=== PATIENT | female | born 1940 | race Caucasian/White ===

== ENCOUNTER 2016-04-08 10:28 | Emergency (ER) | payer MEDICARE, BC ==
[~2016-04-08] VITALS: Ht 162.6 cm; Wt 74.0 kg
[2016-04-08 10:35] VITALS: BP 130/58; PULSE 72; RESP 18; TEMP 98.4; O2SAT 97
[2016-04-08] MEDS ORDERED: METO-338 PO (10:46)
[2016-04-08] MEDS ORDERED: LEXA10TA PO (10:47)
[2016-04-08] MEDS ORDERED: POTA10CA PO (10:47)
[2016-04-08] MEDS ORDERED: METR-1 PO (10:47)
[2016-04-08] MEDS ORDERED: HYDR12.57 PO (10:47)
[2016-04-08] MEDS ORDERED: ALTA10CA10 PO (10:47)
[2016-04-08] MEDS ORDERED: CIPR-9 PO (10:47)
[2016-04-08] MEDS ORDERED: ZYRT10CA PO (10:47)
[2016-04-08] MEDS ORDERED: LIPI10TA PO (10:47)
[2016-04-08] MEDS ORDERED: MULT1TAB84 PO (10:47)
[2016-04-08] MEDS ORDERED: AMLO5 PO (10:47)
[2016-04-08] MEDS ORDERED: GLUC500T4 PO (10:47)
[2016-04-08] MEDS ORDERED: CALCCHW9 CHEW (10:47)
[2016-04-08] MEDS ORDERED: APIX5TAB PO (10:47)
--- NOTE | 2016-04-08 11:03 | PD ---
HPI Chief Complaint: GI Complaint Time Seen by Provider: 10:53 Travel History International Travel<30 days: No Contact w/Intl Traveler<30days: No Traveled to known affect area: No History of Present Illness HPI This 75-year-old female is complaining of left lower quadrant pain. She's been having this pain for about a week. The pain is aggravated by walking and bearing weight. She has a history of diverticulitis. She went to see Dr. De Souza had a week ago and he diagnosed this is an exacerbation of her diverticulitis. She was started on Flagyl and Cipro which he has been taking for the past week. She is not aware of fever. She cannot liquid diet. She has a history of high cholesterol, hypertension and atrial fibrillation. She is on Eliquis. She has no history of abdominal surgery. She did have a colonoscopy about 10 years ago. PFSH Past Medical History Atrial Fibrillation: Yes High Cholesterol: Yes Diminished Hearing: No Hypertension: Yes Tetanus Vaccination: Unknown Influenza Vaccination: Yes ?: Not Past Surgical History Other Surgery: Yes (LEFT BREAST LUMPECTOMY 1999) Social History Alcohol Use: Yes ([facility]) Tobacco Use: No Substance Use: No Allergies-Medications (Allergen,Severity, Reaction): Coded Allergies: No Known Allergies (Unverified , 04/08/16) Reported Meds & Prescriptions Reported Meds & Active Scripts Active Reported Flagyl (Metronidazole) 500 Mg Tab 500 Mg PO TID Cipro (Ciprofloxacin HCl) 500 Mg Tab 500 Mg PO BID Multivitamin Adults (Multiple Vitamins W/ Minerals) 1 Tab 1 Tab PO DAILY Zyrtec Allergy (Cetirizine HCl) 10 Mg Cap 10 Mg PO DAILY Glucosamine-Chondroitin 500-400 Mg Tab 1 Tab PO DAILY Calcium 1200 (Calcium Carbonate-Vitamin D W/Minerals) 1,200-1,000 Mg-Unit Chew 1 Tab CHEW DAILY Eliquis (Apixaban) 5 Mg Tab 10 Mg PO BID Lexapro (Escitalopram Oxalate) 10 Mg Tab 10 Mg PO DAILY Lipitor (Atorvastatin Calcium) 10 Mg Tab 10 Mg PO HS Potassium Chloride ER (Potassium Chloride) 10 Meq Cap 10 Meq PO DAILY Norvasc (Amlodipine Besylate) 5 Mg Tab 5 Mg PO DAILY Altace (Ramipril) 10 Mg Cap 10 Mg PO DAILY Hydrochlorothiazide 12.5 Mg Cap 12.5 Mg PO DAILY Lopressor (Metoprolol Tartrate) 100 Mg Tab 100 Mg PO BID Review of Systems General / Constitutional: No: Fever, Chills Eyes: No: Diploplia, Blurred Vision HENT: No: Headaches Cardiovascular: No: Chest Pain or Discomfort, Palpitations Respiratory: No: Cough Gastrointestinal: Positive: Abdominal Pain, No: Vomiting, Indigestion Genitourinary: No: Urgency, Frequency Musculoskeletal: No: Myalgias Skin: No Rash Neurologic: No: Weakness Hematologic/Lymphatic: No: Easy Bruising Physical Exam Narrative GENERAL: Well-developed female SKIN: Warm and dry. HEAD: Atraumatic. Normocephalic. EYES: Pupils equal and round. No scleral icterus. No injection or drainage. ENT: No nasal bleeding or discharge. Mucous membranes pink and moist. NECK: Trachea midline. No JVD. CARDIOVASCULAR: Regular rate and rhythm. No murmur appreciated. RESPIRATORY: No accessory muscle use. Clear to auscultation. Breath sounds equal bilaterally. GASTROINTESTINAL: Abdomen soft, there is some left lower quadrant tenderness without guarding or rigidity, nondistended. Hepatic and splenic margins not palpable. There is some pain with flexion and rotation of the hip MUSCULOSKELETAL: No obvious deformities. No clubbing. No cyanosis. No edema. NEUROLOGICAL: Awake and alert. No obvious cranial nerve deficits. Motor grossly within normal limits. Normal speech. PSYCHIATRIC: Appropriate mood and affect; insight and judgment normal. Data Data Last Documented VS Vital Signs Date Time Temp Pulse Resp B/P Pulse Ox O2 Delivery O2 Flow Rate FiO2 04/08/16 10:40 16 04/08/16 10:35 98.4 72 130/58 97 Orders Complete Blood Count With Diff (04/08/16 11:00) Basic Metabolic Panel (Bmp) (04/08/16 11:00) Urinalysis - C+S If Indicated (04/08/16 11:00) Ct Abd/Pel W Iv Contrast(Rout) (04/08/16 11:00) Potassium Chloride (Kcl) (04/08/16 12:30) Iohexol 350 Inj (Omnipaque 350 Inj) (04/08/16 12:51) Labs Laboratory Tests Test 04/08/16 04/08/16 11:18 11:23 Urine Collection Type VOIDED Urine Color YELLOW Urine Turbidity CLEAR Urine pH 5.5 Urine Specific [place] 1.017 Urine Protein TRACE mg/dL Urine Glucose (UA) NEG mg/dL Urine Ketones 15 mg/dL Urine Occult Blood NEG Urine Nitrite NEG Urine Reducing Substances Urine Bilirubin NEG Urine Leukocyte Esterase TRACE Urine WBC 0-2 /hpf Urine Squamous Epithelial > 8 /hpf Cells Urine Bacteria FEW /hpf Urine Hyaline Casts 0-2 /lpf Urine Coarse Granular Casts 0-2 /lpf Microscopic Urinalysis Comment CULT NOT INDICATED Urine Collection Time 1118 White Blood Count 5.7 TH/MM3 Red Blood Count 4.79 MIL/MM3 Hemoglobin 15.1 GM/DL Hematocrit 45.4 % Mean Corpuscular Volume 94.8 FL Mean Corpuscular Hemoglobin 31.4 PG Mean Corpuscular Hemoglobin 33.1 % Concent Red Cell Distribution Width 12.6 % Platelet Count 189 TH/MM3 Mean Platelet Volume 7.9 FL Neutrophils (%) (Auto) 71.3 % Lymphocytes (%) (Auto) 7.8 % Monocytes (%) (Auto) 18.4 % Eosinophils (%) (Auto) 1.6 % Basophils (%) (Auto) 0.9 % Neutrophils # (Auto) 4.1 TH/MM3 Lymphocytes # (Auto) 0.4 TH/MM3 Monocytes # (Auto) 1.0 TH/MM3 Eosinophils # (Auto) 0.1 TH/MM3 Basophils # (Auto) 0.1 TH/MM3 CBC Comment DIFF FINAL Differential Comment Sodium Level 143 MEQ/L Potassium Level 2.9 MEQ/L Chloride Level 103 MEQ/L Carbon Dioxide Level 29.4 MEQ/L Anion Gap 11 MEQ/L Blood Urea Nitrogen 18 MG/DL Creatinine 1.00 MG/DL Estimat Glomerular Filtration 54 ML/MIN Rate Random Glucose 168 MG/DL Calcium Level 9.0 MG/DL [facility] Medical Decision Making Medical Screen Exam Complete: Yes Emergency Medical Condition: Yes Medical Record Reviewed: Yes Differential Diagnosis Differential includes diverticulitis, musculoskeletal pain, hernia, renal colic Narrative Course CT scan was obtained and shows uncomplicated diverticulosis. Her white count is normal. She may have diverticulitis under treatment. I don't think any change in antibiotics is warranted in view of the normal studies. The pain is aggravated by movement of the hip and this pain may be musculoskeletal in origin. In any event she is stable for discharge. I recommended she take Tylenol for pain instead of Motrin. Diagnosis Primary Impression: Diverticulosis Qualified Code: K57.30 - Diverticulosis of large intestine without hemorrhage Additional Impression: Musculoskeletal pain Disposition: DISCHARGE HOME Condition: Stable Mike Zheng MD Apr 08, 2016 11:03
[2016-04-08 11:35] LABS: AUTOMATED NEUTROPHIL # 4.1 TH/MM3 (1.8-7.7); BASOPHIL # 0.1 TH/MM3 (0-0.2); BASOPHIL % 0.9 % (0.0-2.0); EOSINOPHIL # 0.1 TH/MM3 (0-0.4); EOSINOPHIL % 1.6 % (0.0-4.0); HEMATOCRIT 45.4 % (35.0-46.0); HEMO FLAGS DIFF FINAL; LYMPH % 7.8 % (9.0-44.0); LYMPHOCYTE # 0.4 TH/MM3 (1.0-4.8); MEAN CELL VOLUME 94.8 FL (80.0-100.0); MEAN CORPUSCULAR HEMOGLOBIN 31.4 PG (27.0-34.0); MEAN CORPUSCULAR HGB CONC 33.1 % (32.0-36.0); MONO % 18.4 % (0.0-8.0); NEUT % 71.3 % (16.0-70.0); PLATELET COUNT 189 TH/MM3 (150-450); RED BLOOD COUNT 4.79 MIL/MM3 (4.00-5.30); RED CELL DISTRIBUTION WIDTH 12.6 % (11.6-17.2); WHITE BLOOD COUNT 5.7 TH/MM3 (4.0-11.0)
[2016-04-08 11:35] LABS: BLOOD, URINE NEG (NEG); GLUCOSE,URINE NEG (NEG); KETONE, URINE 15 mg/dL (NEG); NITRITE,URINE NEG (NEG); PH, URINE 5.5 (5.0-8.5)
[2016-04-08 11:47] LABS: BACTERIA, URINE FEW /hpf; METHOD OF COLLECTION VOIDED; URINE COLOR YELLOW (YELLW/STRAW); WBC, URINE 0-2 /hpf (0-5)
[2016-04-08 11:48] LABS: COMMENT (UR) CULT NOT INDICATED; CULTURE IF INDICATED CULT NOT INDICATED; HYALINE CAST, URINE 0-2 /lpf (RARE); SQUAMOUS EPITHELIAL CELL URINE > 8 /hpf (0-5)
[2016-04-08 12:04] LABS: BICARBONATE 29.4 MEQ/L (21.0-32.0)
[2016-04-08 12:06] LABS: POTASSIUM 2.9 MEQ/L (3.5-5.1)
[2016-04-08] MEDS ORDERED: POTASSIUM CHLORIDE 20 MEQ CONTROLLED RELEASE TAB PO ONE (12:30)
[2016-04-08] MEDS ORDERED: IOHEXOL 350 MG/ML 10 ML VIAL (for RAD DIAG) IV ONE (12:51)
--- NOTE | 2016-04-08 13:02 | RADHPO ---
EXAM DATE/TIME: 04/08/2016 12:40 [facility] COMPARISON: No previous studies available for comparison. INDICATIONS : Left inguinal pain for three days. IV CONTRAST: 70 cc Omnipaque 350 (iohexol) IV ORAL CONTRAST: No oral contrast ingested. RADIATION DOSE: 15.05 CTDIvol (mGy) MEDICAL HISTORY : Hypercholesterolemia. Hypertension. Diverticulitis. SURGICAL HISTORY : None. ENCOUNTER: Initial ACUITY: 3 days PAIN SCALE: 3/10 LOCATION: Left lower quadrant TECHNIQUE: Volumetric scanning of the abdomen and pelvis was performed. Using automated exposure control and ad justment of the mA and/or kV according to patient size, radiation dose was kept as low as reasonably achievable to obtain optimal diagnostic quality images. FINDINGS: LOWER LUNGS: The visualized lower lungs are clear. LIVER: Homogeneous density without lesion. There is no dilation of the biliary tree. Gallbladder is seen an d a luminal structure with multiple 1 cm stones layering near the neck of the gallbladder. SPLEEN: Normal size without lesion. PANCREAS: Within normal limits. KIDNEYS: Normal in size and shape. There is no mass, stone or hydronephrosis. ADRENAL GLANDS: Within normal limits. VASCULAR: There is no aortic aneurysm. BOWEL/MESENTERY: The stomach, small bowel, and colon demonstrate no acute abnormality. There is no free intraperitone al air or fluid. There are uncomplicated diverticuli dispersed throughout the colon and appendix is v isualized and is normal ABDOMINAL WALL: Within normal limits. RETROPERITONEUM: There is no lymphadenopathy. BLADDER: No wall thickening or mass. REPRODUCTIVE: Within normal limits. INGUINAL: There is no lymphadenopathy or hernia. MUSCULOSKELETAL: Rotoscoliosis lumbar spine the left with multilevel degenerative disc disease and facet arthritic sarah nges with L3-4 mild localiz spinal stenosis and a hemangioma in the L4 vertebral body. 1 CONCLUSION: Uncomplicated diverticuli dispersed throughout the colon. Gallstones. Degenerative findings of the jailene mbar spine. Otherwise negative. Specifically the inguinal and femoral regions are no rmal. Sami Jenkins MD on April 08, 2016 at 12:56 Board Certified Radiologist. This report was verified electronically.
[2016-04-08 13:25] VITALS: BP 133/48; PULSE 77; RESP 18; O2SAT 99
== END 2016-04-08 13:31 | disposition home or self-care (01) ==
LOC: PHED 10:28
DX: K57.30 Diverticulosis of large intestine without perforation or abscess without bleeding (principal); M79.1 Myalgia; I10 Essential (primary) hypertension; E78.00 Pure hypercholesterolemia, unspecified; I48.91 Unspecified atrial fibrillation
CPT/HCPCS: 74177; 80048; 81001; 85025; 99284; Q9967